=== PATIENT | female | born 1995 | race African-American/Black ===

== ENCOUNTER 2016-07-25 23:00 | Emergency (ER) | payer OTHER ==
[~2016-07-25] VITALS: Ht 170.2 cm; Wt 61.2 kg
--- NOTE | 2016-07-25 23:13 | ED GI/GU/ABDOMINAL COMPLAINT ---
History of Present Illness General Chief Complaint: Abdominal Pain/Flank Pain Stated Complaint: LOW ABD PAIN Source: patient Exam Limitations: no limitations Vital Signs & Intake/Output Vital Signs & Intake/Output Vital Signs Date Time Temp Pulse Resp B/P Pulse O2 O2 Flow FiO2 Ox Delivery Rate 07/25 2304 98.2 60 16 124/71 98 Room Air Room Air ED Intake and Output 07/26 0000 07/25 1200 Intake Total Output Total Balance Patient 135 lb Weight Allergies Coded Allergies: Penicillins (Severe, ANAPHYLAXIS 07/25/16) Reconcile Medications Ketorolac Tromethamine 10 MG TABLET 1 TAB PO TID PRN PAIN RECEIVED im IN THE er Ondansetron HCl (Zofran) 4 MG TABLET 1 TAB PO Q6-8P PRN NAUSEA Triage Nurses Notes Reviewed? yes ? n Is pt currently ? No Duration: better Timing: recent history Severity Numbers: 5 Location: suprapubic Radiation: no radiation Activities at Onset: none HPI: Patient is a 21-year-old female with an unremarkable past medical history presents to emergency room stating that the past 4 days patient has been complaining of intermittent suprapubic nonradiating pain patient states that the pain is paroxysmal in nature patient is able tolerate by mouth with no change in symptoms. Last bowel movement was within the last 24 hours no blood no melena noted. Patient has not taken any medications for symptoms. Last menstrual period was 3 weeks ago. Patient states that 1 hour prior to arrival she had acute onset of sharp stabbing 10 out 10 suprapubic pain however this has improved to 5/10 currently. Patient at the time of the severe episode at 4 episodes of nonbloody nonbilious emesis. Denies any current nausea or vomiting. Denies any fever, chills, back pain vaginal bleeding vaginal discharge dysuria hematuria. Patient is not sexually active. (MO LANG) Past History Travel History Traveled to [place] past 21 day No Medical History Any Pertinent Medical History? none Neurological: NONE EENT: NONE Cardiovascular: NONE Respiratory: NONE Gastrointestinal: NONE Hepatic: NONE Renal: NONE Musculoskeletal: NONE Psychiatric: NONE Endocrine: NONE Blood Disorders: NONE Cancer(s): NONE STATE EDITOR/Reproductive: NONE Surgical History Surgical History: none Psychosocial History What is your primary language [place] Citizen Tobacco Use: Never used ETOH Use: denies use Illicit Drug Use: denies illicit drug use Family History Hx Contributory? No (MO LANG) Review of Systems Review of Systems Constitutional: Reports: no symptoms. EENTM: Reports: no symptoms. Respiratory: Reports: no symptoms. Cardiovascular: Reports: no symptoms. GI: Reports: see HPI, abdominal pain, nausea. Genitourinary: Reports: no symptoms. Musculoskeletal: Reports: no symptoms. Skin: Reports: no symptoms. Neurological/Psychological: Reports: no symptoms. Hematologic/Endocrine: Reports: no symptoms. Immunologic/Allergic: Reports: no symptoms. All Other Systems: Reviewed and Negative (MO LANG) Physical Exam Physical Exam General Appearance: no apparent distress, comfortable Gastrointestinal: normal bowel sounds, soft, MODERATE SUPRAPUBIC AND RIGHT LOWER QUADRANT PAIN. nO REBOUND TENDERNESS NO PERITONEAL SIGNS Comments: Well-developed well-nourished person in no acute distress HEENT: Normal EENT exam, Neck: Supple, no lymphadenopathy, normal range of motion without pain or tenderness Back: Nontender, no CVA tenderness. Cardiovascular: Regular rate and rhythms no murmurs rubs or gallops, normal JVP Respiratory: Chest nontender. No respiratory distress.breath sounds clear to auscultation bilaterally Extremity: No edema, no calf tenderness to palpation, normal and equal pulses. Neuro: Alert oriented x3, motor sensory normal, Skin: No appreciable rash on exposed skin, skin is warm and dry. Psych: Mood and affect is normal, memory and judgment is normal. Core Measures ACS in differential dx? No Severe Sepsis Present: No Septic Shock Present: No (MO LANG) Progress Differential Diagnosis: AAA, AMI, appendicitis, biliary colic, bowel obstruction , cholecystitis, diverticulitis, ectopic , endometritis, esophageal varices, gastritis, hepatitis, hernia, hemorrhoids, ischemic bowel, inflamm bowel dis, intrauterine , kidney stone, Razia-Liz tear, ovarian cyst , ovarian torsion, pancreatitis, PID/cervicitis, peptic ulcer, PUD/GERD, perforated viscous, SBO, threatened AB, UTI/pyelo Plan of Care: Orders Procedure Date/time Status LACTIC ACID 07/26 226 Active LIPASE 07/25 2326 Complete LACTIC ACID 07/25 2326 Complete WESTERGREN SED RATE 07/25 2326 Complete C-REACTIVE PROTEIN 07/25 2326 Complete COMPREHENSIVE METABOLIC PANEL 07/25 2326 Complete CBC WITHOUT DIFFERENTIAL 07/25 2326 Complete AMYLASE 02/21 2327 Complete URINE 07/25 2305 Complete URINALYSIS 07/25 2305 Complete Laboratory Tests 07/25/16 2352: Anion Gap 10, Estimated GFR > 60, BUN/Creatinine Ratio 15.7, Glucose 119 H, Lactic Acid 1.0, Calcium 9.2, Total Bilirubin 0.4, AST 24, ALT 28, Alkaline Phosphatase 48, C-Reactive Prot, Quant < 0.5, Total Protein 6.5, Albumin 3.9, Globulin 2.6, Albumin/Globulin Ratio 1.5, Amylase 40, Lipase 83, CBC w Diff NO MAN DIFF REQ, RBC 4.00 L, MCV 84.7, MCH 28.8, RDW 13.6, MPV 8.5, Gran % 72.7, Lymphocytes % 19.5 L, Monocytes % 6.0, Eosinophils % 1.4, Basophils % 0.4, Absolute Granulocytes 6.6 H, Absolute Lymphocytes 1.8, Absolute Monocytes 0.5, Absolute Eosinophils 0.1, Absolute Basophils 0, PUBS MCHC 34.0, ESR Westergren 3 07/25/16 2346: Urine Color YEL, Urine Clarity CLEAR, Urine pH 5.5, Ur Specific Smoot >= 1.030 , Urine Protein NEG, Urine Ketones NEG, Urine Nitrite NEG, Urine Bilirubin NEG, Urine Urobilinogen 0.2, Ur Leukocyte Esterase NEG, Ur Microscopic EXAM NOT REQUIRED, Urine Hemoglobin NEG, Urine Glucose NEG, Urine Test NEGATIVE Upon initial examination patient was in no apparent distress blood work was obtained showing unremarkable findings. Patient was given ketorolac and had significant improvement of pain. Upon discharge patient looks well no apparent distress and will comply with discharge instructions and had no questions Discussed handout for Dr. Hussein who is aware of disposition and plan. Patient currently is tolerating by mouth. (MO LANG) Initial ED EKG: none Hand-Off Endorsed To: SHAHIDA HUSSEIN MD Endorsed Time: 010 Pending: labs (MO LANG) Comments: 07/26/2016 1:23:55 AM patient's ESR is normal. She is stable for discharge. (SHAHIDA HUSSEIN MD) Departure Departure Disposition: HOME OR SELF CARE Condition: Stable Clinical Impression Primary Impression: Abdominal pain Secondary Impressions: Nausea Referrals: PATIENT HAS NO PRIMARY CARE DR (PCP/Family) JOSHUA WRIGHT MD Additional Instructions: As discussed begin a 24-hour clear liquid diet to rest YOUR bowels. Begin the prescription OF ketorolac for pain and inflammation. Please follow-up with a primary care doctor as 1 has been provided to the emergency room. If no better in 2 days follow-up with station chief Dr. Wright and/or follow-up with your [employer]. If symptoms worsen return to emergency room. Prescriptions are waiting at [facility] pharmacy. Begin the prescription of Zofran for future nausea Departure Forms: Customer Survey General Discharge Information Prescriptions: Current Visit Scripts Ondansetron HCl (Zofran) 1 TAB PO Q6-8P PRN NAUSEA #15 TAB Ketorolac Tromethamine 1 TAB PO TID PRN PAIN #15 TAB RECEIVED im IN THE er (MO LANG)
[2016-07-26 00:07] LABS: ABSOLUTE BASOPHIL COUNT 0 /CUMM (0.0-0.2); ABSOLUTE EOSINOPHIL COUNT 0.1 /CUMM (0.0-0.7); ABSOLUTE GRANULOCYTE CT 6.6 /CUMM (1.4-6.5); ABSOLUTE LYMPH COUNT 1.8 /CUMM (1.2-3.4); ABSOLUTE MONOCYTE COUNT 0.5 /CUMM (0.10-0.60); BASOPHIL % 0.4 % (0.0-2.0); EOSINOPHIL % 1.4 % (0-5); GRANULOCYTE % 72.7 % (42.2-75.2); HEMATOCRIT 33.9 % (37-47); MEAN CORPUSCULAR HGB 28.8 PG (27.0-31.0); MEAN CORPUSCULAR VOLUME 84.7 FL (81.0-99.0); MEAN PLATELET VOLUME 8.5 FL (7.4-10.4); PLATELET COUNT 180 /CUMM (130-400); RBC DISTRIBUTION WIDTH 13.6 % (11.5-14.5); WHITE BLOOD CELL COUNT 9.1 /CUMM (4.8-10.8)
[2016-07-26] MEDS ORDERED: ZOFRAN4 M2 PO (00:42)
[2016-07-26] MEDS ORDERED: KETOROLAC TROME10 M1 PO (00:42)
[2016-07-26 01:33] VITALS: BP 113/61
== END 2016-07-26 02:26 ==
LOC: ERH 23:00
PROVIDERS: Physician Assistant
DX: R10.30 Lower abdominal pain, unspecified (principal); R11.2 Nausea with vomiting, unspecified
CPT/HCPCS: 81003; 81025; 96361; 96374; J1885